=== PATIENT | male | born 1960 | race Caucasian/White ===

== ENCOUNTER 2021-01-17 09:17 | Emergency (ER) | payer OTHER ==
[~2021-01-17] VITALS: Ht 193 cm; Wt 105.1 kg
[2021-01-17] MEDS ORDERED: OMEGCAP9 PO (09:27)
[2021-01-17] MEDS ORDERED: CRES20TA2 PO (09:27)
[2021-01-17] MEDS ORDERED: TETRACAINE 0.5% OPHTH SOLN 4ML OU ONE (11:15)
[2021-01-17] MEDS ORDERED: FLUORESCEIN OPHTH 1 MG STRIP OU ONE (11:15)
[2021-01-17] MEDS ORDERED: CIPR0.3S6 OD (11:39)
[2021-01-17] MEDS ORDERED: CIPROFLOXACIN 0.3% OPHTH SOLN 2.5ML OD ONE (11:45)
[2021-01-17] MEDS ORDERED: BOOSTRIX/ADACEL VACCINE (DIPHTH/PERTUSS/ACELL/TETANUS) 0.5ML SYR IM ONE (11:45)
[2021-01-17 12:08] VITALS: BP 147/80
== END 2021-01-17 12:30 | disposition home or self-care (01) ==
LOC: M ED 09:17 → EDBD 09:17 → M ED 12:30
DX: H11.31 Conjunctival hemorrhage, right eye (principal); S05.01XA Injury of conjunctiva and corneal abrasion without foreign body, right eye, initial encounter; W22.8XXA Striking against or struck by other objects, initial encounter; Y92.89 Other specified places as the place of occurrence of the external cause; Y99.0 Civilian activity done for income or pay